=== PATIENT | male | born 1935 | race Caucasian/White ===

== ENCOUNTER 2019-10-06 18:34 | Inpatient (IN) | payer BC, MEDICARE ==
[~2019-10-06] VITALS: Ht 170.2 cm; Wt 91.6 kg
--- NOTE | 2019-10-06 19:48 | EKG ---
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
[2019-10-06 20:00] LABS: BASO # 0.1 x10^3/uL (0.0-0.2); BASO % 1 % (0-3); EOS # 0.2 x10^3/uL (0.0-0.7); EOS % 2 % (0-3); HEMATOCRIT 42.6 % (39.0-53.0); HEMOGLOBIN 14.4 g/dL (13.0-17.5); LYMPH # 4.1 x10^3/uL (1.0-4.8); LYMPH % 41 % (24-48); MEAN CORPUSCULAR HEMOGLOBIN 32 pg (25-35); MEAN CORPUSCULAR HGB CONC 34 g/dL (31-37); MEAN CORPUSCULAR VOLUME 95 fL (79-100); MONO # 0.8 x10^3/uL (0.0-1.1); MONO % 8 % (0-9); NEUT % 49 % (31-73); PLATELET COUNT 165 x10^3/uL (140-400); RED CELL DISTRIBUTION WIDTH 13.2 % (11.5-14.5); WHITE BLOOD COUNT 10.1 x10^3/uL (4.0-11.0)
[2019-10-06 20:10] LABS: CALCIUM 8.5 mg/dL (8.5-10.1); GFR 71.4; POTASSIUM 4.3 mmol/L (3.5-5.1)
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
[2019-10-06 20:18] LABS: ACETAMIN < 2.0 mcg/mL (10-30); SALIC < 0.2 mg/dL (2.8-20.0)
[2019-10-06 20:26] LABS: ALBUMIN/GLOBULIN RATIO 0.7 (1.0-1.7); MAGNESIUM 1.5 mg/dL (1.8-2.4); TOTAL BILIRUBIN 0.4 mg/dL (0.2-1.0); TOTAL PROTEIN 7.2 g/dL (6.4-8.2)
[2019-10-06 20:32] LABS: VAL ACID 23 mcg/mL (50-100)
[2019-10-06] MEDS ORDERED: MAGNESIUM CHLORIDE ER 64 MG TABLET.ER PO ONE ×2 (20:52→21:00)
[2019-10-06] MEDS ORDERED: INSULIN LISPRO 300 UNITS/3 ML VIAL. SQ ONE (21:00)
[2019-10-06 21:50] LABS: BARBITURATES NEG (NEG); BENZODIAZEPINES NEG (NEG); BILIRUBIN,URINE NEG (NEG); CANNABINOIDS NEG (NEG); CLARITY,URINE CLOUDY; COCAINE NEG (NEG); COLOR,URINE YELLOW; GLUCOSE,URINE 500 mg/dL (NEG); METHADONE NEG (NEG); NITRITE,URINE NEG (NEG); OPIATES NEG (NEG); PHENCYCLIDINE NEG (NEG); UROBILINOGEN,URINE 0.2 mg/dL (0.2 mg/dL)
[2019-10-06 21:51] LABS: BACTERIA,URINE FEW /HPF (0-FEW); SQUAMOUS EPITHELIAL CELL,UR OCC /LPF; WBC,URINE TNTC /HPF (0-4)
[2019-10-06 21:52] LABS: AMPHETAMINE/METHAMPHETAMINE NEG (NEG)
[2019-10-06] MEDS ORDERED: CEPHALEXIN 250 MG CAPSULE PO ONE (22:15)
[2019-10-06] MEDS ORDERED: ACETAMINOPHEN 325 MG TABLET PO PRN (22:45)
[2019-10-06] MEDS ORDERED: METHYL SALICYLATE/MENTHOL TOPICAL OINTMENT 57GM TUBE. TP PRN (22:45)
[2019-10-06] MEDS ORDERED: MAG HYDROX/AL HYDROX/SIMETH 30 ML ORAL.SUSP PO PRN (22:45)
[2019-10-06] MEDS ORDERED: MAGNESIUM HYDROXIDE 2,400 MG/30 ML ORAL.SUSP. PO PRN (22:45)
[2019-10-06] MEDS ORDERED: DIVA125T PO (23:03)
[2019-10-06] MEDS ORDERED: ASPI-630 PO (23:03)
[2019-10-06] MEDS ORDERED: ACET325T9 PO (23:03)
[2019-10-06] MEDS ORDERED: CHOL200027 PO (23:03)
[2019-10-06] MEDS ORDERED: INSU100I17 SQ (23:03)
[2019-10-06] MEDS ORDERED: NYST15PO9 TP (23:03)
[2019-10-06] MEDS ORDERED: INSU100I27 SQ ×2 (23:03)
[2019-10-06] MEDS ORDERED: CYAN500T17 PO (23:03)
[2019-10-06] MEDS ORDERED: LISI40TA PO (23:03)
[2019-10-06] MEDS ORDERED: DONE10TA61 PO (23:03)
[2019-10-06] MEDS ORDERED: PRAV40TA2 PO (23:03)
--- NOTE | 2019-10-06 23:25 | PDOC ---
Exam Note: Parker Note: Please also refer to the separate dictated note~for this date of service dictated separately. Discussed the patient with Nursing staff reviewed the chart.~Reviewed interim history and current functioning. Reviewed vital signs,~Labs/ Radiology~and current medications noted below. Continue current treatment with the changes noted in the dictated addendum note Assessment: Vital Signs/I&O: Vital Signs Date Time Temp Pulse Resp B/P (MAP) Pulse Ox O2 Delivery O2 Flow Rate FiO2 10/06/19 19:00 98.1 61 97 Room Air Labs: Laboratory Tests Test 10/06/19 19:40 10/06/19 20:59 10/06/19 21:16 10/06/19 23:12 White Blood Count 10.1 x10^3/uL (4.0-11.0) Red Blood Count 4.50 x10^6/uL (4.30-5.70) Hemoglobin 14.4 g/dL (13.0-17.5) Hematocrit 42.6 % (39.0-53.0) Mean Corpuscular Volume 95 fL (79-100) Mean Corpuscular Hemoglobin 32 pg (25-35) Mean Corpuscular Hemoglobin Concent 34 g/dL (31-37) Red Cell Distribution Width 13.2 % (11.5-14.5) Platelet Count 165 x10^3/uL (140-400) Neutrophils (%) (Auto) 49 % (31-73) Lymphocytes (%) (Auto) 41 % (24-48) Monocytes (%) (Auto) 8 % (0-9) Eosinophils (%) (Auto) 2 % (0-3) Basophils (%) (Auto) 1 % (0-3) Neutrophils # (Auto) 5.0 x10^3uL (1.8-7.7) Lymphocytes # (Auto) 4.1 x10^3/uL (1.0-4.8) Monocytes # (Auto) 0.8 x10^3/uL (0.0-1.1) Eosinophils # (Auto) 0.2 x10^3/uL (0.0-0.7) Basophils # (Auto) 0.1 x10^3/uL (0.0-0.2) Sodium Level 131 mmol/L (136-145) L Potassium Level 4.3 mmol/L (3.5-5.1) Chloride Level 97 mmol/L (98-107) L Carbon Dioxide Level 26 mmol/L (21-32) Anion Gap 8 (6-14) Blood Urea Nitrogen 17 mg/dL (8-26) Creatinine 1.0 mg/dL (0.7-1.3) Estimated GFR (Cockcroft-Gault) 71.4 BUN/Creatinine Ratio 17 (6-20) Glucose Level 312 mg/dL (70-99) H Calcium Level 8.5 mg/dL (8.5-10.1) Magnesium Level 1.5 mg/dL (1.8-2.4) L Total Bilirubin 0.4 mg/dL (0.2-1.0) Aspartate Amino Transferase (AST) 15 U/L (15-37) Alanine Aminotransferase (ALT) 28 U/L (16-63) Alkaline Phosphatase 64 U/L (46-116) Creatine Kinase 54 U/L (39-308) Creatine Kinase MB (Mass) 1.3 ng/mL (0.0-3.6) Creatine Kinase MB Relative Index 2.4 % (0-4) Troponin I Quantitative < 0.017 ng/mL (0-0.055) Total Protein 7.2 g/dL (6.4-8.2) Albumin 3.0 g/dL (3.4-5.0) L Albumin/Globulin Ratio 0.7 (1.0-1.7) L Salicylates Level < 0.2 mg/dL (2.8-20.0) L Salicylate Last Dose Date Salicylate Last Dose Time Acetaminophen Level < 2.0 mcg/mL (10-30) L Acetaminophen Last Dose Date Acetaminophen Last Dose Time Valproic Acid Level 23 mcg/mL (50-100) L Valproic Acid Last Dose Date 08/30/11 Valproic Acid Last Dose Time 1111 Ethyl Alcohol Level < 10 mg/dL (0-10) Glucose (Fingerstick) 333 mg/dL (70-99) H 261 mg/dL (70-99) H Urine Collection Type Unknown Urine Color Yellow Urine Clarity Cloudy Urine pH 7.0 Urine Specific [place] 1.020 Urine Protein Trace (NEG-TRACE) Urine Glucose (UA) 500 mg/dL (NEG) Urine Ketones (Stick) Trace mg/dL (NEG) Urine Blood Mod (NEG) Urine Nitrite Neg (NEG) Urine Bilirubin Neg (NEG) Urine Urobilinogen Dipstick 0.2 mg/dL (0.2 mg/dL) Urine Leukocyte Esterase Mod (NEG) Urine RBC 6-10 /HPF (0-2) Urine WBC Tntc /HPF (0-4) Urine Squamous Epithelial Cells Occ /LPF Urine Bacteria Few /HPF (0-FEW) Urine Opiates Screen Neg (NEG) Urine Methadone Screen Neg (NEG) Urine Barbiturates Neg (NEG) Urine Phencyclidine Screen Neg (NEG) Urine Amphetamine/Methamphetamine Neg (NEG) Urine Benzodiazepines Screen Neg (NEG) Urine Cocaine Screen Neg (NEG) Urine Cannabinoids Screen Neg (NEG) Urine Ethyl Alcohol Neg (NEG) Current Medications: Meds: Current Medications Medications (Trade) Dose Ordered Sig/Ministerio Route PRN Reason Start Time Stop Time Status Last Admin Dose Admin Magnesium Chloride (Mag Delay) 64 mg 1X ONCE PO 10/06/19 21:00 10/06/19 21:01 DC 10/06/19 20:56 Insulin Human Lispro (HumaLOG) 10 units 1X ONCE SQ 10/06/19 21:00 10/06/19 21:01 DC 10/06/19 21:00 Cephalexin HCl (Keflex) 500 mg 1X ONCE PO 10/06/19 22:15 10/06/19 22:16 DC 10/06/19 22:03 I have reviewed the current psychotropics carefully including drug interactions. Risk benefit ratio favors no change other than as noted in my dictated progress note. ALLAN WALTERS MD Oct 06, 2019 23:25
[2019-10-07] MEDS ORDERED: DEXTROSE 50% 25 GM / 50ML DISP.SYRIN. IV PRN (00:30)
[2019-10-07 00:45] VITALS: BP 166/75
[2019-10-07] MEDS ORDERED: NYSTATIN TOPICAL POWDER 15GM BOTTLE. TP PRN (00:45)
[2019-10-07] MEDS ORDERED: ACETAMINOPHEN 325 MG TABLET PO PRN (00:45)
[2019-10-07 06:13] VITALS: BP 131/74
[2019-10-07] MEDS: ASPIRIN 81 MG TAB.CHEW PO SCH (10:06)
[2019-10-07] MEDS: LISINOPRIL 20 MG TABLET PO SCH (10:07)
[2019-10-07] MEDS: DIVALPROEX SODIUM 125 MG TABLET.DR. PO SCH ×2 (10:07→21:42)
[2019-10-07] MEDS: CHOLECALCIFEROL (VITAMIN D3) 1,000 UNIT TABLET PO SCH (10:07)
[2019-10-07] MEDS: CYANOCOBALAMIN (VITAMIN B-12) 1,000 MCG TABLET. PO SCH (10:08)
[2019-10-07] MEDS: INSULIN GLARGINE SYRINGE. SQ SCH ×2 (10:10→21:44)
[2019-10-07] MEDS: INSULIN LISPRO 300 UNITS/3 ML VIAL. SQ SCH ×6 (10:12→17:33)
[2019-10-07 16:15] VITALS: BP 111/59
[2019-10-07 17:59] LABS: THYROXINE 8.2 ug/dL (4.5-12.0)
[2019-10-07 19:25] LABS: HDLC 27 mg/dL (40-60); THYROID STIM HORMONE (TSH) 3.377 uIU/mL (0.358-3.740); TRIGLYCERIDES 583 mg/dL (0-150); VLDLC 116 mg/dL (0-40)
--- NOTE | 2019-10-07 20:43 | PDOC ---
Exam Note: Parker Note: Please also refer to the separate dictated note~for this date of service dictated separately.~Patient seen individually. Discussed the patient with Nursing staff reviewed the chart.~Reviewed interim history and current functioning. Reviewed vital signs,~Labs/ Radiology~and current medications noted below. Continue current treatment with the changes noted in the dictated addendum note Assessment: Vital Signs/I&O: Vital Signs Date Time Temp Pulse Resp B/P (MAP) Pulse Ox O2 Delivery O2 Flow Rate FiO2 10/07/19 16:15 98.0 67 19 111/59 (76) 95 10/06/19 19:00 Room Air Labs: Laboratory Tests Test 10/06/19 20:59 10/06/19 21:16 10/06/19 23:12 10/07/19 10:11 Glucose (Fingerstick) 333 mg/dL (70-99) H 261 mg/dL (70-99) H 298 mg/dL (70-99) H Urine Collection Type Unknown Urine Color Yellow Urine Clarity Cloudy Urine pH 7.0 Urine Specific [place] 1.020 Urine Protein Trace (NEG-TRACE) Urine Glucose (UA) 500 mg/dL (NEG) Urine Ketones (Stick) Trace mg/dL (NEG) Urine Blood Mod (NEG) Urine Nitrite Neg (NEG) Urine Bilirubin Neg (NEG) Urine Urobilinogen Dipstick 0.2 mg/dL (0.2 mg/dL) Urine Leukocyte Esterase Mod (NEG) Urine RBC 6-10 /HPF (0-2) Urine WBC Tntc /HPF (0-4) Urine Squamous Epithelial Cells Occ /LPF Urine Bacteria Few /HPF (0-FEW) Urine Opiates Screen Neg (NEG) Urine Methadone Screen Neg (NEG) Urine Barbiturates Neg (NEG) Urine Phencyclidine Screen Neg (NEG) Urine Amphetamine/Methamphetamine Neg (NEG) Urine Benzodiazepines Screen Neg (NEG) Urine Cocaine Screen Neg (NEG) Urine Cannabinoids Screen Neg (NEG) Urine Ethyl Alcohol Neg (NEG) Test 10/07/19 11:59 10/07/19 17:29 10/07/19 19:03 Glucose (Fingerstick) 338 mg/dL (70-99) H 254 mg/dL (70-99) H 308 mg/dL (70-99) H Current Medications: Meds: Current Medications Medications (Trade) Dose Ordered Sig/Ministerio Route PRN Reason Start Time Stop Time Status Last Admin Dose Admin Magnesium Chloride (Mag Delay) 64 mg 1X ONCE PO 10/06/19 21:00 10/06/19 21:01 DC 10/06/19 20:56 Insulin Human Lispro (HumaLOG) 10 units 1X ONCE SQ 10/06/19 21:00 10/06/19 21:01 DC 10/06/19 21:00 Cephalexin HCl (Keflex) 500 mg 1X ONCE PO 10/06/19 22:15 10/06/19 22:16 DC 10/06/19 22:03 Divalproex Sodium (Depakote) 125 mg BID PO 10/07/19 09:00 10/07/19 10:07 Insulin Human Lispro (HumaLOG) 0-9 UNITS TIDWMEALS SQ 10/07/19 08:00 10/07/19 17:32 Aspirin (Children'S Aspirin) 81 mg DAILY PO 10/07/19 09:00 10/07/19 10:06 Vitamin D (Vitamin D3) 2,000 unit DAILY08 PO 10/07/19 08:00 10/07/19 10:07 Cyanocobalamin (Vitamin B-12) 500 mcg DAILY PO 10/07/19 09:00 10/07/19 10:08 Insulin Human Lispro (HumaLOG) 8 units TIDWMEALS SQ 10/07/19 08:00 10/07/19 17:33 Insulin Glargine (Lantus Syringe) 50 unit DAILY08 SQ 10/07/19 08:00 10/07/19 10:10 Lisinopril (Prinivil) 40 mg DAILY PO 10/07/19 09:00 10/07/19 10:07 I have reviewed the current psychotropics carefully including drug interactions. Risk benefit ratio favors no change other than as noted in my dictated progress note. Diagnosis: Problems: (1) Anxiety disorder (2) Dementia in Alzheimer's disease with delusions (3) Dementia in Alzheimer's disease with depression (4) Dementia, vascular, with delusions (5) Dementia, vascular, with depression (6) Impulse control disorder ALLAN WALTERS MD Oct 07, 2019 20:43
[2019-10-07] MEDS: ATORVASTATIN CALCIUM 10 MG TABLET. PO SCH (21:42)
[2019-10-07] MEDS: DONEPEZIL HCL 10 MG TABLET PO SCH (21:42)
[2019-10-08 01:06] LABS: HEMOGLOBIN A1C 9.1 % (4.8-5.6)
[2019-10-08 04:58] VITALS: BP 105/53
[2019-10-08] MEDS: INSULIN LISPRO 300 UNITS/3 ML VIAL. SQ SCH ×6 (08:00→17:21)
[2019-10-08] MEDS: ASPIRIN 81 MG TAB.CHEW PO SCH (08:25)
[2019-10-08] MEDS: DIVALPROEX SODIUM 125 MG TABLET.DR. PO SCH ×2 (08:25→20:07)
[2019-10-08] MEDS: CYANOCOBALAMIN (VITAMIN B-12) 1,000 MCG TABLET. PO SCH (08:25)
[2019-10-08] MEDS: CHOLECALCIFEROL (VITAMIN D3) 1,000 UNIT TABLET PO SCH (08:25)
[2019-10-08] MEDS: LISINOPRIL 20 MG TABLET PO SCH (08:26)
[2019-10-08] MEDS: INSULIN GLARGINE SYRINGE. SQ SCH ×2 (08:29→20:11)
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
[2019-10-08 16:09] VITALS: BP 107/59
[2019-10-08] MEDS: ATORVASTATIN CALCIUM 10 MG TABLET. PO SCH (20:07)
[2019-10-08] MEDS: DONEPEZIL HCL 10 MG TABLET PO SCH (20:07)
--- NOTE | 2019-10-08 21:34 | PDOC ---
Exam Note: Parker Note: Please also refer to the separate dictated note~for this date of service dictated separately.~Patient seen individually. Discussed the patient with Nursing staff reviewed the chart.~Reviewed interim history and current functioning. Reviewed vital signs,~Labs/ Radiology~and current medications noted below. Continue current treatment with the changes noted in the dictated addendum note Assessment: Vital Signs/I&O: Vital Signs Date Time Temp Pulse Resp B/P (MAP) Pulse Ox O2 Delivery O2 Flow Rate FiO2 10/08/19 16:09 98.0 74 16 107/59 (75) 95 Room Air I & O 10/07/19 10/07/19 10/08/19 15:00 23:00 07:00 Intake Total 480 ml 240 ml Balance 480 ml 240 ml Labs: Laboratory Tests Test 10/08/19 07:55 10/08/19 12:05 10/08/19 16:38 10/08/19 19:20 Glucose (Fingerstick) 147 mg/dL (70-99) H 325 mg/dL (70-99) H 258 mg/dL (70-99) H 340 mg/dL (70-99) H Current Medications: I have reviewed the current psychotropics carefully including drug interactions. Risk benefit ratio favors no change other than as noted in my dictated progress note. Diagnosis: Problems: (1) Anxiety disorder (2) Dementia in Alzheimer's disease with delusions (3) Dementia in Alzheimer's disease with depression (4) Dementia, vascular, with delusions (5) Dementia, vascular, with depression (6) Impulse control disorder ALLAN WALTERS MD Oct 08, 2019 21:34
[2019-10-09 04:54] VITALS: BP 107/63
[2019-10-09 07:26] LABS: BASO # 0.1 x10^3/uL (0.0-0.2); BASO % 1 % (0-3); EOS # 0.2 x10^3/uL (0.0-0.7); EOS % 2 % (0-3); HEMATOCRIT 41.7 % (39.0-53.0); HEMOGLOBIN 14.4 g/dL (13.0-17.5); LYMPH # 3.5 x10^3/uL (1.0-4.8); LYMPH % 32 % (24-48); MEAN CORPUSCULAR HEMOGLOBIN 32 pg (25-35); MEAN CORPUSCULAR HGB CONC 35 g/dL (31-37); MEAN CORPUSCULAR VOLUME 93 fL (79-100); MONO # 0.9 x10^3/uL (0.0-1.1); MONO % 8 % (0-9); NEUT # 6.3 x10^3uL (1.8-7.7); NEUT % 58 % (31-73); PLATELET COUNT 169 x10^3/uL (140-400); RED BLOOD COUNT 4.51 x10^6/uL (4.30-5.70); RED CELL DISTRIBUTION WIDTH 13.5 % (11.5-14.5); WHITE BLOOD COUNT 10.9 x10^3/uL (4.0-11.0)
[2019-10-09 07:37] LABS: ALBUMIN/GLOBULIN RATIO 0.7 (1.0-1.7); ALK PHOS 59 U/L (46-116); ALT (SGPT) 23 U/L (16-63); ANION GAP 9 (6-14); AST (SGOT) 21 U/L (15-37); BLOOD UREA NITROGEN 21 mg/dL (8-26); BUN/CREATININE RATIO 23 (6-20); CALCIUM 8.8 mg/dL (8.5-10.1); CARBON DIOXIDE 27 mmol/L (21-32); CHLORIDE 102 mmol/L (98-107); CREATININE 0.9 mg/dL (0.7-1.3); GFR 80.6; GLUCOSE 140 mg/dL (70-99); POTASSIUM 4.2 mmol/L (3.5-5.1); SODIUM 138 mmol/L (136-145); TOTAL BILIRUBIN 0.9 mg/dL (0.2-1.0); TOTAL PROTEIN 7.3 g/dL (6.4-8.2)
[2019-10-09 07:40] LABS: VAL ACID 15 mcg/mL (50-100)
[2019-10-09] MEDS: ASPIRIN 81 MG TAB.CHEW PO SCH (08:37)
[2019-10-09] MEDS: DIVALPROEX SODIUM 125 MG TABLET.DR. PO SCH ×2 (08:37→20:34)
[2019-10-09] MEDS: CHOLECALCIFEROL (VITAMIN D3) 1,000 UNIT TABLET PO SCH (08:37)
[2019-10-09 08:39] VITALS: BP 136/71
[2019-10-09] MEDS: LISINOPRIL 20 MG TABLET PO SCH (08:39)
[2019-10-09] MEDS: INSULIN LISPRO 300 UNITS/3 ML VIAL. SQ SCH ×6 (08:40→17:15)
[2019-10-09] MEDS: CYANOCOBALAMIN (VITAMIN B-12) 1,000 MCG TABLET. PO SCH (08:40)
[2019-10-09] MEDS: INSULIN GLARGINE SYRINGE. SQ SCH ×2 (08:43→20:35)
[2019-10-09 16:10] VITALS: BP 148/76
[2019-10-09] MEDS: DONEPEZIL HCL 10 MG TABLET PO SCH (20:33)
[2019-10-09] MEDS: ATORVASTATIN CALCIUM 10 MG TABLET. PO SCH (20:34)
--- NOTE | 2019-10-09 21:30 | PDOC ---
Exam Note: Parker Note: Please also refer to the separate dictated note~for this date of service dictated separately.~Patient seen individually. Discussed the patient with Nursing staff reviewed the chart.~Reviewed interim history and current functioning. Reviewed vital signs,~Labs/ Radiology~and current medications noted below. Continue current treatment with the changes noted in the dictated addendum note Assessment: Vital Signs/I&O: Vital Signs Date Time Temp Pulse Resp B/P (MAP) Pulse Ox O2 Delivery O2 Flow Rate FiO2 10/09/19 16:10 98.4 68 16 148/76 (100) 97 10/08/19 16:09 Room Air I & O 10/08/19 10/08/19 10/09/19 14:59 22:59 06:59 Intake Total 750 ml 240 ml Balance 750 ml 240 ml Labs: Laboratory Tests Test 10/09/19 07:00 10/09/19 07:34 10/09/19 11:27 10/09/19 16:08 White Blood Count 10.9 x10^3/uL (4.0-11.0) Red Blood Count 4.51 x10^6/uL (4.30-5.70) Hemoglobin 14.4 g/dL (13.0-17.5) Hematocrit 41.7 % (39.0-53.0) Mean Corpuscular Volume 93 fL (79-100) Mean Corpuscular Hemoglobin 32 pg (25-35) Mean Corpuscular Hemoglobin Concent 35 g/dL (31-37) Red Cell Distribution Width 13.5 % (11.5-14.5) Platelet Count 169 x10^3/uL (140-400) Neutrophils (%) (Auto) 58 % (31-73) Lymphocytes (%) (Auto) 32 % (24-48) Monocytes (%) (Auto) 8 % (0-9) Eosinophils (%) (Auto) 2 % (0-3) Basophils (%) (Auto) 1 % (0-3) Neutrophils # (Auto) 6.3 x10^3uL (1.8-7.7) Lymphocytes # (Auto) 3.5 x10^3/uL (1.0-4.8) Monocytes # (Auto) 0.9 x10^3/uL (0.0-1.1) Eosinophils # (Auto) 0.2 x10^3/uL (0.0-0.7) Basophils # (Auto) 0.1 x10^3/uL (0.0-0.2) Sodium Level 138 mmol/L (136-145) Potassium Level 4.2 mmol/L (3.5-5.1) Chloride Level 102 mmol/L (98-107) Carbon Dioxide Level 27 mmol/L (21-32) Anion Gap 9 (6-14) Blood Urea Nitrogen 21 mg/dL (8-26) Creatinine 0.9 mg/dL (0.7-1.3) Estimated GFR (Cockcroft-Gault) 80.6 BUN/Creatinine Ratio 23 (6-20) H Glucose Level 140 mg/dL (70-99) H Calcium Level 8.8 mg/dL (8.5-10.1) Total Bilirubin 0.9 mg/dL (0.2-1.0) Aspartate Amino Transferase (AST) 21 U/L (15-37) Alanine Aminotransferase (ALT) 23 U/L (16-63) Alkaline Phosphatase 59 U/L (46-116) Total Protein 7.3 g/dL (6.4-8.2) Albumin 3.0 g/dL (3.4-5.0) L Albumin/Globulin Ratio 0.7 (1.0-1.7) L Valproic Acid Level 15 mcg/mL (50-100) L Valproic Acid Last Dose Date 10/08/19 Valproic Acid Last Dose Time 2100 Glucose (Fingerstick) 133 mg/dL (70-99) H 258 mg/dL (70-99) H 274 mg/dL (70-99) H Test 10/09/19 19:45 Glucose (Fingerstick) 222 mg/dL (70-99) H Current Medications: I have reviewed the current psychotropics carefully including drug interactions. Risk benefit ratio favors no change other than as noted in my dictated progress note. 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
[2019-10-10 05:34] VITALS: BP 115/63
[2019-10-10] MEDS: INSULIN LISPRO 300 UNITS/3 ML VIAL. SQ SCH ×6 (08:00→17:16)
[2019-10-10] MEDS: CHOLECALCIFEROL (VITAMIN D3) 1,000 UNIT TABLET PO SCH (08:20)
[2019-10-10] MEDS: INSULIN GLARGINE SYRINGE. SQ SCH ×2 (08:22→20:31)
[2019-10-10] MEDS: ASPIRIN 81 MG TAB.CHEW PO SCH (08:22)
[2019-10-10] MEDS: LISINOPRIL 20 MG TABLET PO SCH (08:23)
[2019-10-10] MEDS: CYANOCOBALAMIN (VITAMIN B-12) 1,000 MCG TABLET. PO SCH (08:23)
[2019-10-10] MEDS: DIVALPROEX SODIUM 125 MG TABLET.DR. PO SCH ×2 (08:26→20:32)
[2019-10-10 15:36] VITALS: BP 149/72
[2019-10-10] MEDS: DONEPEZIL HCL 10 MG TABLET PO SCH (20:32)
[2019-10-10] MEDS: ATORVASTATIN CALCIUM 10 MG TABLET. PO SCH (20:32)
--- NOTE | 2019-10-10 21:05 | PDOC ---
Exam Note: Parker Note: Please also refer to the separate dictated note~for this date of service dictated separately.~Patient seen individually. Discussed the patient with Nursing staff reviewed the chart.~Reviewed interim history and current functioning. Reviewed vital signs,~Labs/ Radiology~and current medications noted below. Continue current treatment with the changes noted in the dictated addendum note Assessment: Vital Signs/I&O: Vital Signs Date Time Temp Pulse Resp B/P (MAP) Pulse Ox O2 Delivery O2 Flow Rate FiO2 10/10/19 15:36 97.4 63 16 149/72 (97) 96 10/08/19 16:09 Room Air I & O 10/09/19 10/09/19 10/10/19 14:59 22:59 06:59 Intake Total 360 ml 240 ml 120 ml Balance 360 ml 240 ml 120 ml Labs: Laboratory Tests Test 10/10/19 07:41 10/10/19 11:28 10/10/19 17:07 10/10/19 19:22 Glucose (Fingerstick) 95 mg/dL (70-99) 312 mg/dL (70-99) H 253 mg/dL (70-99) H 317 mg/dL (70-99) H Current Medications: Meds: Current Medications Medications (Trade) Dose Ordered Sig/Ministerio Route PRN Reason Start Time Stop Time Status Last Admin Dose Admin Divalproex Sodium (Depakote) 250 mg BID PO 10/10/19 09:00 10/10/19 20:32 Olanzapine (ZyPREXA ZYDIS) 2.5 mg PRN Q2HR PRN PO PSYCHOSIS 10/10/19 12:00 10/10/19 12:57 I have reviewed the current psychotropics carefully including drug interactions. Risk benefit ratio favors no change other than as noted in my dictated progress note. Diagnosis: Problems: (1) Anxiety disorder (2) Dementia in Alzheimer's disease with delusions (3) Dementia in Alzheimer's disease with depression (4) Dementia, vascular, with delusions (5) Dementia, vascular, with depression (6) Impulse control disorder ALLAN WALTERS MD Oct 10, 2019 21:05
[2019-10-11 05:18] VITALS: BP 125/63
[2019-10-11] MEDS: INSULIN LISPRO 300 UNITS/3 ML VIAL. SQ SCH ×6 (08:32→17:36)
[2019-10-11] MEDS: INSULIN GLARGINE SYRINGE. SQ SCH ×2 (08:32→20:48)
[2019-10-11] MEDS: CHOLECALCIFEROL (VITAMIN D3) 1,000 UNIT TABLET PO SCH (08:34)
[2019-10-11] MEDS: CYANOCOBALAMIN (VITAMIN B-12) 1,000 MCG TABLET. PO SCH (08:35)
[2019-10-11] MEDS: LISINOPRIL 20 MG TABLET PO SCH (08:35)
[2019-10-11] MEDS: DIVALPROEX SODIUM 125 MG TABLET.DR. PO SCH ×2 (08:35→20:48)
[2019-10-11] MEDS: ASPIRIN 81 MG TAB.CHEW PO SCH (08:35)
--- NOTE | 2019-10-11 10:08 | PN ---
DATE: 10/08/2019 This late entry 10/08/2019 covers elements not covered in my initial note. SUBJECTIVE: I met with the patient evening of 10/08/2019 and staffed at a treatment team meeting earlier in the day with the entire team. 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 He slept 6-1/2 hours previous night. UA has reflux to culture. If positive, we will treat for UTI. Valproic acid level is 23, subtherapeutic. REVIEW OF SYSTEMS: No CV, , pulmonary, eye, ENT system symptoms on review, reliability poor. MENTAL STATUS EXAM: Oriented to himself. Insight, judgment, recent and remote memory, attention, concentration, fund of knowledge poor, consistent with his diagnosis mentioned in my initial note. PLAN: Continue Depakote, Aricept for now. Check labs, level on 10/10/2019. Adjust further thereafter to reach therapeutic level. MAN Allyn WALTERS MD DR: PEACE/paulette JOB#: [id number] / [id number]
--- NOTE | 2019-10-11 13:12 | PN ---
DATE: 10/10/2019 PSYCHIATRIC PROGRESS NOTE This late entry 10/10/2019 covers the elements not covered in my initial note. SUBJECTIVE: I met with the patient in the evening of 10/10/2019. The patient slept for 5-1/2 hours previous night. He gets a little agitated, received Zyprexa p.r.n., but otherwise doing better. REVIEW OF SYSTEMS: No CV, , pulmonary, eye, ENT system symptoms on review. Reliability poor. MENTAL STATUS EXAM: Oriented to himself. Insight, judgment, recent and remote memory, attention, concentration, fund of knowledge poor, consistent with his diagnosis mentioned in my initial note. PLAN: No change from initial note. Adjust Depakote dosage post-labs level. MAN Allyn WALTERS MD DR: PEACE/paulette JOB#: [id number] / [id number]
--- NOTE | 2019-10-11 13:15 | PN ---
DATE: 10/09/2019 PSYCHIATRIC PROGRESS NOTE This late entry 10/09/2019 covers the elements not covered in my initial note. SUBJECTIVE: I met with the patient in the evening of 10/09/2019. The patient slept for three-quarter hours previous night. He has had some shortness of breath. Deferred to Dr. Gordillo. Nursing staff wonders whether he has some cognitive dysfunction, questionable MR or borderline IQ. We will reassess this. REVIEW OF SYSTEMS: Ambulation impaired. No CV, , pulmonary, eye system symptoms on review. Reliability poor. MENTAL STATUS EXAM: Oriented to himself. Insight, judgment, recent and remote memory, attention, concentration, fund of knowledge poor, consistent with his diagnosis mentioned in my initial note. PLAN: The patient's valproic acid level is 15 on Depakote Sprinkles 125 b.i.d. We will increase to 250 b.i.d. Check CBC, CMP, valproic acid level in 3 days. Maintain Aricept 10 mg a day. Consider SSRIs. MAN Allyn WALTERS MD DR: PEACE/paulette JOB#: [id number] / [id number]
[2019-10-11 16:16] VITALS: BP 137/81
[2019-10-11] MEDS: DONEPEZIL HCL 10 MG TABLET PO SCH (20:48)
[2019-10-11] MEDS: ATORVASTATIN CALCIUM 10 MG TABLET. PO SCH (20:48)
--- NOTE | 2019-10-11 21:27 | PDOC ---
Exam Note: Parker Note: Please also refer to the separate dictated note~for this date of service dictated separately.~Patient seen individually. Discussed the patient with Nursing staff reviewed the chart.~Reviewed interim history and current functioning. Reviewed vital signs,~Labs/ Radiology~and current medications noted below. Continue current treatment with the changes noted in the dictated addendum note Assessment: Vital Signs/I&O: Vital Signs Date Time Temp Pulse Resp B/P (MAP) Pulse Ox O2 Delivery O2 Flow Rate FiO2 10/11/19 16:16 97.6 61 16 137/81 (99) 87 10/08/19 16:09 Room Air I & O 10/10/19 10/10/19 10/11/19 15:00 23:00 07:00 Intake Total 960 ml 360 ml Balance 960 ml 360 ml Labs: Laboratory Tests Test 10/11/19 07:34 10/11/19 11:55 10/11/19 17:23 10/11/19 19:15 Glucose (Fingerstick) 113 mg/dL (70-99) H 161 mg/dL (70-99) H 238 mg/dL (70-99) H 189 mg/dL (70-99) H Current Medications: I have reviewed the current psychotropics carefully including drug interactions. Risk benefit ratio favors no change other than as noted in my dictated progress note. Diagnosis: Problems: (1) Anxiety disorder (2) Dementia in Alzheimer's disease with delusions (3) Dementia in Alzheimer's disease with depression (4) Dementia, vascular, with delusions (5) Dementia, vascular, with depression (6) Impulse control disorder ALLAN WALTERS MD Oct 11, 2019 21:27
[2019-10-12 05:26] VITALS: BP 109/58
[2019-10-12] MEDS: INSULIN LISPRO 300 UNITS/3 ML VIAL. SQ SCH ×6 (08:25→17:25)
[2019-10-12] MEDS: DIVALPROEX SODIUM 125 MG TABLET.DR. PO SCH ×2 (09:29→19:30)
[2019-10-12] MEDS: ASPIRIN 81 MG TAB.CHEW PO SCH (09:29)
[2019-10-12] MEDS: CHOLECALCIFEROL (VITAMIN D3) 1,000 UNIT TABLET PO SCH (09:29)
[2019-10-12] MEDS: LISINOPRIL 20 MG TABLET PO SCH (09:30)
[2019-10-12] MEDS: SERTRALINE 25 MG TABLET. PO SCH (09:30)
[2019-10-12] MEDS: CYANOCOBALAMIN (VITAMIN B-12) 1,000 MCG TABLET. PO SCH (09:32)
[2019-10-12] MEDS: INSULIN GLARGINE SYRINGE. SQ SCH ×2 (09:33→19:35)
[2019-10-12 16:08] VITALS: BP 153/61
[2019-10-12] MEDS: DONEPEZIL HCL 10 MG TABLET PO SCH (19:30)
[2019-10-12] MEDS: ATORVASTATIN CALCIUM 10 MG TABLET. PO SCH (19:30)
[2019-10-12] MEDS ORDERED: cloZAPine 25 MG TABLET PO SCH (21:00)
--- NOTE | 2019-10-12 21:25 | PDOC ---
Exam Note: Parker Note: Please also refer to the separate dictated note~for this date of service dictated separately.~Patient seen individually. Discussed the patient with Nursing staff reviewed the chart.~Reviewed interim history and current functioning. Reviewed vital signs,~Labs/ Radiology~and current medications noted below. Continue current treatment with the changes noted in the dictated addendum note Assessment: Vital Signs/I&O: Vital Signs Date Time Temp Pulse Resp B/P (MAP) Pulse Ox O2 Delivery O2 Flow Rate FiO2 10/12/19 16:08 97.8 77 16 153/61 (91) 94 10/08/19 16:09 Room Air I & O 10/11/19 10/11/19 10/12/19 15:00 23:00 07:00 Intake Total 690 ml 120 ml Balance 690 ml 120 ml Labs: Laboratory Tests Test 10/12/19 07:53 10/12/19 12:11 10/12/19 17:09 Glucose (Fingerstick) 86 mg/dL (70-99) 241 mg/dL (70-99) H 186 mg/dL (70-99) H Current Medications: Meds: Current Medications Medications (Trade) Dose Ordered Sig/Ministerio Route PRN Reason Start Time Stop Time Status Last Admin Dose Admin Sertraline HCl (Zoloft) 25 mg DAILY PO 10/12/19 09:00 10/12/19 09:30 I have reviewed the current psychotropics carefully including drug interactions. Risk benefit ratio favors no change other than as noted in my dictated progress note. Diagnosis: Problems: (1) Anxiety disorder (2) Dementia in Alzheimer's disease with delusions (3) Dementia in Alzheimer's disease with depression (4) Dementia, vascular, with delusions (5) Dementia, vascular, with depression (6) Impulse control disorder ALLAN WALTERS MD Oct 12, 2019 21:25
[2019-10-13 05:48] VITALS: BP 122/64
[2019-10-13] MEDS ORDERED: SERT25TA PO (07:42)
[2019-10-13] MEDS ORDERED: OLAN5TAB9 PO (07:44)
[2019-10-13 07:45] LABS: BASO % 0 % (0-3); EOS # 0.1 x10^3/uL (0.0-0.7); EOS % 1 % (0-3); HEMATOCRIT 42.5 % (39.0-53.0); LYMPH # 2.2 x10^3/uL (1.0-4.8); LYMPH % 17 % (24-48); MEAN CORPUSCULAR HEMOGLOBIN 31 pg (25-35); MEAN CORPUSCULAR HGB CONC 33 g/dL (31-37); MEAN CORPUSCULAR VOLUME 94 fL (79-100); MONO # 0.8 x10^3/uL (0.0-1.1); MONO % 6 % (0-9); NEUT # 9.9 x10^3uL (1.8-7.7); NEUT % 76 % (31-73); PLATELET COUNT 185 x10^3/uL (140-400); RED BLOOD COUNT 4.51 x10^6/uL (4.30-5.70); RED CELL DISTRIBUTION WIDTH 13.6 % (11.5-14.5)
[2019-10-13] MEDS ORDERED: MAGN24003 PO (07:45)
[2019-10-13] MEDS ORDERED: MAG30ORA2 PO (07:46)
[2019-10-13] MEDS ORDERED: METH28OI2 TP (07:47)
[2019-10-13] MEDS ORDERED: INSU100V SQ ×2 (07:51→07:55)
[2019-10-13] MEDS: INSULIN LISPRO 300 UNITS/3 ML VIAL. SQ SCH ×6 (08:12→17:50)
[2019-10-13 08:30] LABS: ALBUMIN/GLOBULIN RATIO 0.7 (1.0-1.7); ALK PHOS 58 U/L (46-116); ALT (SGPT) 20 U/L (16-63); ANION GAP 9 (6-14); AST (SGOT) 16 U/L (15-37); BLOOD UREA NITROGEN 17 mg/dL (8-26); BUN/CREATININE RATIO 21 (6-20); CALCIUM 8.4 mg/dL (8.5-10.1); CARBON DIOXIDE 28 mmol/L (21-32); CHLORIDE 101 mmol/L (98-107); CREATININE 0.8 mg/dL (0.7-1.3); GFR 92.3; GLUCOSE 85 mg/dL (70-99); POTASSIUM 4.5 mmol/L (3.5-5.1); SODIUM 138 mmol/L (136-145); TOTAL BILIRUBIN 0.8 mg/dL (0.2-1.0); TOTAL PROTEIN 7.4 g/dL (6.4-8.2)
[2019-10-13 08:44] LABS: VAL ACID 32 mcg/mL (50-100)
[2019-10-13] MEDS: ASPIRIN 81 MG TAB.CHEW PO SCH (08:59)
[2019-10-13] MEDS: CYANOCOBALAMIN (VITAMIN B-12) 1,000 MCG TABLET. PO SCH (08:59)
[2019-10-13] MEDS: CHOLECALCIFEROL (VITAMIN D3) 1,000 UNIT TABLET PO SCH (08:59)
[2019-10-13] MEDS: DIVALPROEX SODIUM 125 MG TABLET.DR. PO SCH ×3 (08:59→21:46)
[2019-10-13] MEDS: LISINOPRIL 20 MG TABLET PO SCH (08:59)
[2019-10-13] MEDS: SERTRALINE 25 MG TABLET. PO SCH (09:01)
[2019-10-13] MEDS: INSULIN GLARGINE SYRINGE. SQ SCH ×2 (09:04→20:45)
[2019-10-13 15:47] VITALS: BP 134/63
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
[2019-10-13] MEDS: DONEPEZIL HCL 10 MG TABLET PO SCH (20:46)
[2019-10-13] MEDS: ATORVASTATIN CALCIUM 10 MG TABLET. PO SCH (20:46)
--- NOTE | 2019-10-13 21:44 | PDOC ---
Exam Note: Parker Note: Please also refer to the separate dictated note~for this date of service dictated separately.~Patient seen individually. Discussed the patient with Nursing staff reviewed the chart.~Reviewed interim history and current functioning. Reviewed vital signs,~Labs/ Radiology~and current medications noted below. Continue current treatment with the changes noted in the dictated addendum note Assessment: Vital Signs/I&O: Vital Signs Date Time Temp Pulse Resp B/P (MAP) Pulse Ox O2 Delivery O2 Flow Rate FiO2 10/13/19 15:47 98.2 76 16 134/63 (86) 91 10/13/19 05:48 Room Air I & O 10/12/19 10/12/19 10/13/19 14:59 22:59 06:59 Intake Total 600 ml 760 ml Balance 600 ml 760 ml Labs: Laboratory Tests Test 10/13/19 07:15 10/13/19 07:43 10/13/19 12:02 10/13/19 17:05 White Blood Count 13.0 x10^3/uL (4.0-11.0) H Red Blood Count 4.51 x10^6/uL (4.30-5.70) Hemoglobin 14.0 g/dL (13.0-17.5) Hematocrit 42.5 % (39.0-53.0) Mean Corpuscular Volume 94 fL (79-100) Mean Corpuscular Hemoglobin 31 pg (25-35) Mean Corpuscular Hemoglobin Concent 33 g/dL (31-37) Red Cell Distribution Width 13.6 % (11.5-14.5) Platelet Count 185 x10^3/uL (140-400) Neutrophils (%) (Auto) 76 % (31-73) H Lymphocytes (%) (Auto) 17 % (24-48) L Monocytes (%) (Auto) 6 % (0-9) Eosinophils (%) (Auto) 1 % (0-3) Basophils (%) (Auto) 0 % (0-3) Neutrophils # (Auto) 9.9 x10^3uL (1.8-7.7) H Lymphocytes # (Auto) 2.2 x10^3/uL (1.0-4.8) Monocytes # (Auto) 0.8 x10^3/uL (0.0-1.1) Eosinophils # (Auto) 0.1 x10^3/uL (0.0-0.7) Basophils # (Auto) 0.0 x10^3/uL (0.0-0.2) Sodium Level 138 mmol/L (136-145) Potassium Level 4.5 mmol/L (3.5-5.1) Chloride Level 101 mmol/L (98-107) Carbon Dioxide Level 28 mmol/L (21-32) Anion Gap 9 (6-14) Blood Urea Nitrogen 17 mg/dL (8-26) Creatinine 0.8 mg/dL (0.7-1.3) Estimated GFR (Cockcroft-Gault) 92.3 BUN/Creatinine Ratio 21 (6-20) H Glucose Level 85 mg/dL (70-99) Calcium Level 8.4 mg/dL (8.5-10.1) L Total Bilirubin 0.8 mg/dL (0.2-1.0) Aspartate Amino Transferase (AST) 16 U/L (15-37) Alanine Aminotransferase (ALT) 20 U/L (16-63) Alkaline Phosphatase 58 U/L (46-116) Total Protein 7.4 g/dL (6.4-8.2) Albumin 3.0 g/dL (3.4-5.0) L Albumin/Globulin Ratio 0.7 (1.0-1.7) L Valproic Acid Level 32 mcg/mL (50-100) L Valproic Acid Last Dose Date 10/12/2019 Valproic Acid Last Dose Time 2100 Glucose (Fingerstick) 98 mg/dL (70-99) 290 mg/dL (70-99) H 354 mg/dL (70-99) H Test 10/13/19 19:09 Glucose (Fingerstick) 374 mg/dL (70-99) H Current Medications: I have reviewed the current psychotropics carefully including drug interactions. Risk benefit ratio favors no change other than as noted in my dictated progress note. Diagnosis: Problems: (1) Anxiety disorder (2) Dementia in Alzheimer's disease with delusions (3) Dementia in Alzheimer's disease with depression (4) Dementia, vascular, with delusions (5) Dementia, vascular, with depression (6) Impulse control disorder ALLAN WALTERS MD Oct 13, 2019 21:44
--- NOTE | 2019-10-13 23:23 | PN ---
DATE: 10/12/2019 PSYCHIATRIC PROGRESS NOTE This late entry 10/12/2019 covers elements not covered in my initial note. SUBJECTIVE: I met with the patient evening of 10/12/2019. The patient slept 9-1/4 hours previous night. The patient remains confused, anxious at times, walks with assistance. REVIEW OF SYSTEMS: No CV, , pulmonary, eye, ENT system symptoms on review. Reliability poor. MENTAL STATUS EXAM: Oriented to himself. Insight, judgment, recent and remote memory, attention, concentration, fund of knowledge poor, consistent with his diagnosis mentioned in my initial note. PLAN: No change from initial note. MAN Allyn WALTERS MD DR: PEACE/paulette JOB#: [id number] / [id number]
--- NOTE | 2019-10-13 23:25 | PN ---
DATE: 10/11/2019 PSYCHIATRIC PROGRESS NOTE This late entry 10/11/2019 covers elements not covered in my initial note. SUBJECTIVE: I met with the patient evening of 10/11/2019. The patient slept 7-1/4 hours previous night per SAMMIE Weller. He did well at night and during the day grabbing the arm of nursing staff at one point, but this was probably due to his misinterpreting what they were attempting to do. He remains somewhat anxious, depressed at times. REVIEW OF SYSTEMS: Ambulation impaired. No CV, , pulmonary, eye, ENT system symptoms on review. Reliability poor. MENTAL STATUS EXAM: Oriented to himself. Insight, judgment, recent and remote memory, attention, concentration, fund of knowledge poor, consistent with his diagnosis mentioned in my initial note. PLAN: No change from initial note, but we will start Zoloft 25 mg a day for his mood and anxiety symptoms. Rest unchanged including Aricept, Depakote 250 b.i.d., Zyprexa p.r.n. ALLAN WALTERS MD DR: PEACE/paulette JOB#: [id number] / [id number]
[2019-10-14 05:16] VITALS: BP 132/58
[2019-10-14] MEDS: INSULIN LISPRO 300 UNITS/3 ML VIAL. SQ SCH ×6 (08:00→17:23)
[2019-10-14 09:10] VITALS: BP 131/77
[2019-10-14] MEDS: CHOLECALCIFEROL (VITAMIN D3) 1,000 UNIT TABLET PO SCH (09:14)
[2019-10-14] MEDS: DIVALPROEX SODIUM 125 MG TABLET.DR. PO SCH ×2 (09:14→21:03)
[2019-10-14] MEDS: CYANOCOBALAMIN (VITAMIN B-12) 1,000 MCG TABLET. PO SCH (09:14)
[2019-10-14] MEDS: ASPIRIN 81 MG TAB.CHEW PO SCH (09:14)
[2019-10-14] MEDS: SERTRALINE 25 MG TABLET. PO SCH (09:14)
[2019-10-14] MEDS: LISINOPRIL 20 MG TABLET PO SCH (09:18)
[2019-10-14] MEDS: INSULIN GLARGINE SYRINGE. SQ SCH ×2 (09:23→21:06)
[2019-10-14 15:42] VITALS: BP 151/87
--- NOTE | 2019-10-14 20:58 | PDOC ---
Exam Note: Parker Note: Please also refer to the separate dictated note~for this date of service dictated separately.~Patient seen individually. Discussed the patient with Nursing staff reviewed the chart.~Reviewed interim history and current functioning. Reviewed vital signs,~Labs/ Radiology~and current medications noted below. Continue current treatment with the changes noted in the dictated addendum note Assessment: Vital Signs/I&O: Vital Signs Date Time Temp Pulse Resp B/P (MAP) Pulse Ox O2 Delivery O2 Flow Rate FiO2 10/14/19 15:42 98.7 55 16 151/87 (108) 96 10/14/19 05:16 Room Air I & O 10/13/19 10/13/19 10/14/19 15:00 23:00 07:00 Intake Total 960 ml Balance 960 ml Labs: Laboratory Tests Test 10/14/19 07:29 10/14/19 11:52 10/14/19 17:06 10/14/19 20:01 Glucose (Fingerstick) 103 mg/dL (70-99) H 249 mg/dL (70-99) H 236 mg/dL (70-99) H 252 mg/dL (70-99) H Current Medications: Meds: Current Medications Medications (Trade) Dose Ordered Sig/Ministerio Route PRN Reason Start Time Stop Time Status Last Admin Dose Admin Divalproex Sodium (Depakote) 375 mg BID PO 10/13/19 21:30 10/14/19 09:14 I have reviewed the current psychotropics carefully including drug interactions. Risk benefit ratio favors no change other than as noted in my dictated progress note. Diagnosis: Problems: (1) Anxiety disorder (2) Dementia in Alzheimer's disease with delusions (3) Dementia in Alzheimer's disease with depression (4) Dementia, vascular, with delusions (5) Dementia, vascular, with depression (6) Impulse control disorder ALLAN WALTERS MD Oct 14, 2019 20:58
[2019-10-14] MEDS: ATORVASTATIN CALCIUM 10 MG TABLET. PO SCH (21:03)
[2019-10-14] MEDS: DONEPEZIL HCL 10 MG TABLET PO SCH (21:03)
[2019-10-15 05:06] VITALS: BP 131/62
[2019-10-15] MEDS: INSULIN LISPRO 300 UNITS/3 ML VIAL. SQ SCH ×2 (07:41→08:00)
[2019-10-15] MEDS: INSULIN GLARGINE SYRINGE. SQ SCH (08:00)
[2019-10-15] MEDS: CHOLECALCIFEROL (VITAMIN D3) 1,000 UNIT TABLET PO SCH (08:25)
[2019-10-15] MEDS: DIVALPROEX SODIUM 125 MG TABLET.DR. PO SCH (08:25)
[2019-10-15 08:26] VITALS: BP 131/62
[2019-10-15] MEDS: CYANOCOBALAMIN (VITAMIN B-12) 1,000 MCG TABLET. PO SCH (08:26)
[2019-10-15] MEDS: LISINOPRIL 20 MG TABLET PO SCH (08:26)
[2019-10-15] MEDS: ASPIRIN 81 MG TAB.CHEW PO SCH (08:26)
[2019-10-15] MEDS ORDERED: SERTRALINE 25 MG TABLET. PO SCH (09:00)
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
--- NOTE | 2019-10-15 12:01 | PN ---
DATE: 10/13/2019 PSYCHIATRIC PROGRESS NOTE This late entry 10/13/2019 covers the elements not covered in my initial note. SUBJECTIVE: I met with the patient evening of 10/13/2019. The patient slept 9 hours previous night. He remains withdrawn, oriented to himself, somewhat low functioning, intellectually questionably per nursing staff. REVIEW OF SYSTEMS: Ambulation impaired, in wheelchair. No CV, , pulmonary, eye system symptoms on review. Reliability poor. MENTAL STATUS EXAM: Oriented to himself. Insight, judgment, recent and remote memory, attention, concentration, fund of knowledge poor, consistent with his diagnosis. IMPRESSION: Major neurocognitive disorder, Alzheimer, vascular with delusion, depression, behavioral disturbance; anxiety disorder, unspecified; impulse control disorder, unspecified. PLAN: Increase Zoloft to 50 mg a day after he has been on 25 for 3 days. Increase Depakote from 250 b.i.d. to 375 b.i.d. Check CBC, CMP, valproic level in 3 days. Maintain Zyprexa p.r.n. Rest unchanged. Last valproic level was 32 on 10/13/2019. MAN Allyn WALTERS MD DR: PEACE/paulette JOB#: [id number] / [id number]
--- NOTE | 2019-10-15 12:06 | PN ---
DATE: 10/14/2019 PSYCHIATRIC PROGRESS NOTE This late entry 10/14/2019 covers elements not covered in my initial note. SUBJECTIVE: I met with the patient evening of 10/14/2019. The patient slept 8-1/2 hours previous night. Blood sugars were elevated, received 7 units sliding scale, isolative in his room. REVIEW OF SYSTEMS: No CV, , pulmonary, eye system symptoms on review. Gait unsteady, in wheelchair. Reliability poor. MENTAL STATUS EXAM: Oriented to himself. Insight, judgment, recent and remote memory, attention, concentration, fund of knowledge poor, consistent with his diagnosis mentioned in my initial note. PLAN: No change from initial note with possible discharge to [facility] 10/15/2019. MAN Allyn WALTERS MD DR: PEACE/paulette JOB#: [id number] / [id number]
--- NOTE | 2019-10-15 21:13 | PDOC ---
Exam Note: [facility] Note: Please also refer to the separate dictated note~for this date of service dictated separately.~Patient seen individually. Discussed the patient with Nursing staff reviewed the chart.~Reviewed interim history and current functioning. Reviewed vital signs,~Labs/ Radiology~and current medications noted below. Continue current treatment with the changes noted in the dictated addendum note Assessment: Vital Signs/I&O: Vital Signs Date Time Temp Pulse Resp B/P (MAP) Pulse Ox O2 Delivery O2 Flow Rate FiO2 10/15/19 08:26 75 131/62 10/15/19 05:06 97.7 20 95 Room Air I & O 10/14/19 10/14/19 10/15/19 15:00 23:00 07:00 Intake Total 720 ml 240 ml Balance 720 ml 240 ml Labs: Laboratory Tests Test 10/15/19 07:32 Glucose (Fingerstick) 120 mg/dL (70-99) H Current Medications: Meds: Current Medications Medications (Trade) Dose Ordered Sig/[facility] Route PRN Reason Start Time Stop Time Status Last Admin Dose Admin Sertraline HCl (Zoloft) 50 mg DAILY PO 10/15/19 09:00 10/15/19 11:14 DC 10/15/19 08:26 I have reviewed the current psychotropics carefully including drug interactions. Risk benefit ratio favors no change other than as noted in my dictated progress note. Diagnosis: Problems: (1) Anxiety disorder (2) Dementia in Alzheimer's disease with delusions (3) Dementia in Alzheimer's disease with depression (4) Dementia, vascular, with delusions (5) Dementia, vascular, with depression (6) Impulse control disorder ALLAN WALTERS MD Oct 15, 2019 21:13
== END 2019-10-15 11:14 | DRG 57 ==
LOC: ER 18:34 → GEROPSY 22:22 → ER 22:22
PROVIDERS: ADMIT Psychiatry & Neurology Psychiatry; ATTEND Psychiatry & Neurology Psychiatry
DX: G30.9 Alzheimer's disease, unspecified (principal); F01.51 Vascular dementia, unspecified severity, with behavioral disturbance; N39.0 Urinary tract infection, site not specified; F02.81 Dementia in other diseases classified elsewhere, unspecified severity, with behavioral disturbance; F32.9 Major depressive disorder, single episode, unspecified; E11.65 Type 2 diabetes mellitus with hyperglycemia; E78.5 Hyperlipidemia, unspecified; E83.42 Hypomagnesemia; F31.9 Bipolar disorder, unspecified; F41.9 Anxiety disorder, unspecified; F63.9 Impulse disorder, unspecified; I10 Essential (primary) hypertension; R29.6 Repeated falls; Z66 Do not resuscitate; Z79.899 Other long term (current) drug therapy
CPT/HCPCS: 36415; 80053; 80061; 80164; 80307; 80329; 81001; 82306; 82553; 82607; 82947; 83036; 83540; 83550; 83735; 84436; 84443; 84480; 84484; 85025; 86592; 87086; 93005; 96372; G0480; J1815; P9612; 82003; 97530; 99285-25